=== PATIENT | male | born 1930 | race Caucasian/White ===

== ENCOUNTER 2021-12-31 08:38 | Inpatient (IN) ==
[2021-12-31] MEDS ORDERED: SODIUM CHLORIDE 1,000 ML IV STA (08:39)
--- NOTE | 2021-12-31 08:41 | ED.PDOC ---
General ED Provider: Dr. DIPESH ALONSO MD Chief Complaint: Weakness Stated Complaint: mild to mod general weakness today, no pain, no loc, no injury, no fever, no NV, +dry cough off and on, not on home oxygen, hx atrial fib and constipation, no dm Time Seen by Provider: 12/31/21 08:38 Nursing and Triage Documentation Reviewed and Agree: Yes Does patient meet sepsis criteria?: No System Inflammatory Response Syndrome: Not Applicable Sepsis Protocol: For patient's 13 years and over: Temp is 96.8 and below OR 101 and greater Pulse >90 BPM Resp >20/minute Acutely Altered Mental Status Are patient's symptoms suggestive of a new infection, such as: -Pneumonia -Skin, Soft Tissue -Endocarditis -UTI -Bone, Joint Infection -Implantable Device -Acute Abdominal Infection -Wound Infection -Meningitis -Blood Stream Catheter Infection -Unknown Review of Systems Review Of Systems Constitutional: Reports Weakness; Denies Fever Eyes: Denies Vision change Ears, Nose, Mouth, Throat: Denies Throat pain Respiratory: Reports Cough; Denies Short of air Cardiac: Denies Chest pain GI: Denies Abdominal pain or Vomiting : Denies Dysuria Musculoskeletal: Denies Back pain or Neck pain Skin: Denies Rash or Cyanosis Neurological: Denies Cognitive dysfunction All Other Systems: Other Physical Exam Physical Exam Appearance: Reports No pain distress Ill-appearing: None Pain Distress: None Eyes: Reports TREVA, EOMI and Conjunctiva clear ENT: Reports Oropharynx normal; Denies Rhinorrhea Neck: Supple Respiratory: Reports Airway patent, Breath sounds clear and Breath sounds equal Cardiovascular: Reports RRR GI/: Reports Soft and Nontender Musculoskeletal: Reports ROM intact Skin: Reports Warm and Dry Neurological: Reports Alert and Oriented Psychiatric: Reports Affect appropriate Interpretation Radiology Interpretation Radiology Interpretation By: Radiologist Xray Comments: right LL infil EKG Interpretation Time of EKG #1: 10:48 Rate: Normal Rhythm: Sinus Interpretation: first deg avb, no stemi Critical Care Note Critical Care Note Total Critical Care Time (mins): 30 Course Course Hematology/Chemistry: 12/31/21 09:00 12/31/21 09:00 Orders, Labs, Meds: Lab Review 12/31/21 12/31/21 12/31/21 08:50 09:00 09:00 WBC 3.77 L RBC 4.08 L Hgb 12.6 L Hct 36.1 L MCV 88.5 MCH 30.9 MCHC 34.9 RDW Coeff of Tamy 12.6 Plt Count 103 L Neutrophils % (Manual) 40.0 L Band Neutrophils % 1.0 Lymphocytes % (Manual) 31.0 Monocytes % (Manual) 22.0 H Metamyelocytes % 3.0 H Reactive Lymphocytes 3.0 Plt Morphology Comment Decreased Anisocytosis Not present RBC Morph Comment Normal PT INR Puncture Site Base Excess O2 Saturation ABG pH ABG pCO2 ABG pO2 ABG HCO3 ABG Total CO2 Cristian Test Hemoglobin Oxyhemoglobin Carboxyhemoglobin Total Hemoglobin FiO2 % Sodium 133.0 L Potassium 3.59 Chloride 97.8 L Carbon Dioxide 27.7 Anion Gap 11.09 BUN 26.3 H Creatinine 1.26 H Estimated GFR (MDRD) 54.00 BUN/Creatinine Ratio 20.87 Glucose 111.8 H Lactic Acid Calcium 8.03 L Total Bilirubin 1.06 AST 52.6 ALT 64.0 H Alkaline Phosphatase 53.1 L Troponin I 0.032 Total Protein 5.94 L Albumin 3.24 L Globulin 2.70 Albumin/Globulin Ratio 1.20 Urine Color Urine Clarity Urine pH Ur Specific [place] Urine Protein Urine Glucose (UA) Urine Ketones Urine Blood Urine Nitrite Urine Bilirubin Urine Urobilinogen Ur Leukocyte Esterase Urine Microscopic RBC Ur Squamous Epith Cells Digoxin SARS CoV-2 RNA Rapid MALATHI Positive H 12/31/21 12/31/21 12/31/21 09:00 09:00 09:00 WBC RBC Hgb Hct MCV MCH MCHC RDW Coeff of Tamy Plt Count Neutrophils % (Manual) Band Neutrophils % Lymphocytes % (Manual) Monocytes % (Manual) Metamyelocytes % Reactive Lymphocytes Plt Morphology Comment Anisocytosis RBC Morph Comment PT 9.8 INR 0.94 Puncture Site Base Excess O2 Saturation ABG pH ABG pCO2 ABG pO2 ABG HCO3 ABG Total CO2 Cristian Test Hemoglobin Oxyhemoglobin Carboxyhemoglobin Total Hemoglobin FiO2 % Sodium Potassium Chloride Carbon Dioxide Anion Gap BUN Creatinine Estimated GFR (MDRD) BUN/Creatinine Ratio Glucose Lactic Acid 0.99 Calcium Total Bilirubin AST ALT Alkaline Phosphatase Troponin I Total Protein Albumin Globulin Albumin/Globulin Ratio Urine Color Urine Clarity Urine pH Ur Specific [place] Urine Protein Urine Glucose (UA) Urine Ketones Urine Blood Urine Nitrite Urine Bilirubin Urine Urobilinogen Ur Leukocyte Esterase Urine Microscopic RBC Ur Squamous Epith Cells Digoxin < 0.40 L SARS CoV-2 RNA Rapid MALATHI 12/31/21 12/31/21 09:00 09:30 WBC RBC Hgb Hct MCV MCH MCHC RDW Coeff of Tamy Plt Count Neutrophils % (Manual) Band Neutrophils % Lymphocytes % (Manual) Monocytes % (Manual) Metamyelocytes % Reactive Lymphocytes Plt Morphology Comment Anisocytosis RBC Morph Comment PT INR Puncture Site Rb Base Excess 6.5 H O2 Saturation 99.6 H ABG pH 7.56 H* ABG pCO2 32.0 L ABG pO2 155.0 H ABG HCO3 28.7 H ABG Total CO2 29.7 H Cristian Test Pos Hemoglobin 2.0 H Oxyhemoglobin 94.4 L Carboxyhemoglobin 2.8 H Total Hemoglobin 13.2 FiO2 % 21.0 Sodium Potassium Chloride Carbon Dioxide Anion Gap BUN Creatinine Estimated GFR (MDRD) BUN/Creatinine Ratio Glucose Lactic Acid Calcium Total Bilirubin AST ALT Alkaline Phosphatase Troponin I Total Protein Albumin Globulin Albumin/Globulin Ratio Urine Color Yellow Urine Clarity Clear Urine pH 6.5 Ur Specific [place] 1.015 Urine Protein Negative Urine Glucose (UA) Negative Urine Ketones Negative Urine Blood Trace-intact H Urine Nitrite Negative Urine Bilirubin Negative Urine Urobilinogen 1.0 H Ur Leukocyte Esterase Negative Urine Microscopic RBC 0-2 Ur Squamous Epith Cells Not present Digoxin SARS CoV-2 RNA Rapid MALATHI Orders Category Date Time Status ABG DRAW REQUEST Stat CARDIO 12/31/21 08:48 Completed EKG-(ED ONLY) Stat CARDIO 12/31/21 08:39 Completed METERED DOSE INHALATION Routine CARDIO 12/31/21 09:36 Completed OXYGEN [ED APPLY O2] .ONCE EMERGENCY 12/31/21 09:37 Active ABG COOX Stat LAB 12/31/21 09:00 Completed CBC W/ AUTO DIFF Stat LAB 12/31/21 09:00 Completed CMP [COMPREHENSIVE METABOLIC PANEL] Stat LAB 12/31/21 09:00 Completed DIGOXIN Stat LAB 12/31/21 09:00 Completed LACTIC ACID Stat LAB 12/31/21 09:00 Completed MANUAL DIFFERENTIAL Stat LAB 12/31/21 09:00 Completed PT WITH INR Stat LAB 12/31/21 09:00 Completed SARS COV-2 RNA RAPID MALATHI Stat LAB 12/31/21 08:50 Completed TROPONIN I Stat LAB 12/31/21 09:00 Completed URINALYSIS C & S IF INDICATED Stat LAB 12/31/21 09:30 Completed Albuterol Inhaler(with Spacer) [Ventolin Hfa (Per Puff- MEDS 12/31/21 09:36 Discontinued with Spacer)] 2 puff IH ONCE ONE Methylprednisolone Sod Succ/Pf [Solu-Medrol 125 mg] MEDS 12/31/21 09:36 Discontinued 125 mg IM ONCE ONE Sodium Chloride 0.9% [Sodium Chloride] 1,000 ml MEDS 12/31/21 08:39 Discontinued IV BOLUS CHEST, 1V AP ONLY Stat RADS 12/31/21 08:39 Completed KUB Stat RADS 12/31/21 08:48 Completed Medications Discontinued Medications Generic Name Dose Route Start Last Admin Trade Name Freq PRN Reason Stop Dose Admin Albuterol Sulfate 2 puff 12/31/21 09:36 12/31/21 09:48 Albuterol Sulfate (Ventolin Hfa) 18 Gm 1 Puff With Spacer IH 12/31/21 09:37 2 puff ONCE ONE Administration Sodium Chloride 1,000 mls @ 1,000 mls/hr 12/31/21 08:39 Sodium Chloride IV 12/31/21 09:38 BOLUS STA Methylprednisolone Sodium Succinate 125 mg 12/31/21 09:36 12/31/21 10:01 Methylprednisolone Sod Succ/Pf 125 Mg/2 Ml Vial IM 12/31/21 09:37 125 mg ONCE ONE Administration Vital Signs: Temp Pulse Resp BP Pulse Ox 12/31/21 08:38 98.5 F 86 18 130/65 91 L Discharge Plan Discharge Patient Disposition: ADMITTED INPATIENT Discharge Problem: COVID-19, Pneumonia, Hypoxia Prescriptions: No Action latanoprost 0.005 % drops 1 drp BOTHEYES BEDTIME Label Comments: Instill 1 drop into both eyes every evening ofloxacin 0.3 % drops 1 drp RIGHTEYE TID Label Comments: Instill 1 drop into right eye three times a day for 5 days artificial tears solution Drops 2 drp OPHTHALMIC (EYE) PRN PRN (Reason: Dry Eyes) terazosin 2 mg capsule 2 mg PO BEDTIME Label Comments: TAKE ONE CAPSULE BY MOUTH AT BEDTIME losartan-hydrochlorothiazide 50-12.5 mg tablet 1 tab PO DAILY Label Comments: TAKE ONE TABLET BY MOUTH DAILY Did you review [place] RESEARCH TECHNOLOGIST?: Not Applicable ED Provider: DIPESH ALONSO Condition: Stable Physician Progress Note: []icu tele admit for covid hypoxia to hospitalist
[2021-12-31 09:07] LABS: ABG O2 HGB 94.4 % (95-100); BEecf 6.5 (-2.0-3.0); COHb 2.8 (0.5-1.5); HCO3 28.7 (21-28); TCO2 29.7 (19-24); sO2 99.6 % (94-98); tHb 13.2 g/dl (11.7-17.4)
[2021-12-31 09:09] LABS: ABG PH 7.56 (7.35-7.45)
[2021-12-31 09:22] LABS: HEMATOCRIT 36.1 % (42.0-52.0); HEMOGLOBIN 12.6 g/dl (14.0-18.0); MEAN CORPUSCULAR HEMOGLOBIN 30.9 pg (27.0-31.0); MEAN CORPUSCULAR HGB CONC 34.9 (31.8-35.4); MEAN CORPUSCULAR VOLUME 88.5 fl (80.0-94.0); PLATELET COUNT 103 10^3/uL (140-440); RDW COEFFICIENT OF VARIATION 12.6 % (11.6-14.8); RED BLOOD COUNT 4.08 10^6/ul (4.70-6.10); WHITE BLOOD COUNT 3.77 K/ul (4.2-10.2)
[2021-12-31 09:30] LABS: PROTHROMBIN TIME 9.8 SEC (9.3-11.0)
--- NOTE | 2021-12-31 09:33 | DI ---
EXAM: CHEST RADIOGRAPH (1 VIEW) TECHNIQUE: Frontal Chest Radiograph. HISTORY: Weakness COMPARISON: Chest radiograph 12/23/2021 FINDINGS: Lines, Tubes, Devices: None Lungs and Pleura: Small hazy opacity in the right lower lobe. No pleural effusion. No pneumothorax . Cardiomediastinum: Normal cardiomediastinal silhouette. No aortic calcifications. Bones/Soft Tissues: Degenerative changes of the spine. No soft tissue abnormality. Upper Abdomen: Within normal limits. IMPRESSION: Small hazy opacity in the right lower lobe which may represent summation shadow, however developing p neumonia is not excluded. Follow-up lateral chest radiograph could be performed for further evaluati on.
[2021-12-31 09:35] LABS: BILIRUBIN,URINE Negative (NEGATIVE); CLARITY,URINE Clear (CLEAR); COLOR,URINE Yellow (YELLOW); GLUCOSE, URINE (UA) Negative (NEGATIVE); KETONES,URINE Negative (NEGATIVE); LEUKOCYTE ESTERASE ,URINE Negative (NEGATIVE); NITRITE,URINE Negative (NEGATIVE); PH,URINE 6.5 (5-9); PROTEIN,URINE Negative (NEGATIVE); URINE, BLOOD Trace-intact (NEGATIVE)
[2021-12-31] MEDS ORDERED: VENTOLIN HFA (PER PUFF-WITH SPACER) IH ONE (09:36)
[2021-12-31] MEDS ORDERED: SOLU-MEDROL 125 MG IM ONE (09:36)
[2021-12-31 09:41] LABS: SQUAMOUS EPITHELIAL CELL,UR NOT PRESENT (0-5); URINE RBC, MICROSCOPIC 0-2 (0-2)
[2021-12-31 09:44] LABS: ANISOCYTOSIS NOT PRESENT (NOT PRESENT)
--- NOTE | 2021-12-31 10:00 | DI ---
EXAM: ABDOMINAL RADIOGRAPH (1 VIEW) HISTORY: Constipation. TECHNIQUE: AP radiograph of the abdomen. COMPARISON: None. FINDINGS: No dilated gas-filled loops of small bowel or colon. Normal colonic fecal burden. No pathologic calcifications. Degenerative changes of the lumbar spine with multilevel osteophytes. Lung bases are clear. IMPRESSION: No dilated bowel. Normal colonic fecal burden.
[2021-12-31 10:32] LABS: ALBUMIN 3.24 g/dL (3.5-5.0); ALKALINE PHOSPHATASE 53.1 U/L (56-119); ASPARTATE AMINO TRANSFERASE 52.6 U/L (17-59); BILIRUBIN,TOTAL 1.06 mg/dL (0.2-1.3); BLOOD UREA NITROGEN 26.3 mg/dL (9-20); CALCIUM 8.03 mg/dL (8.4-10.2); CARBON DIOXIDE 27.7 mmol/L (22-30.0); CHLORIDE 97.8 mmol/L (98-107); CREATININE 1.26 mg/dL (0.60-1.10); GLUCOSE 111.8 mg/dL (74-106); POTASSIUM 3.59 mmol/L (3.5-5.1); TOTAL PROTEIN 5.94 g/dL (6.3-8.2)
[2021-12-31 10:43] LABS: TROPONIN I 0.032 ng/ml (0.0000-0.120)
[2021-12-31] MEDS ORDERED: SOLU-MEDROL 40 MG IVP STA (10:51)
[2021-12-31] MEDS ORDERED: VENTOLIN HFA (PER PUFF-WITH SPACER) IH STA (10:51)
[2021-12-31] MEDS ORDERED: ARTIFICIAL TEARS DROPS EACHEYE PRN (11:16)
[2021-12-31] MEDS: LEVAQUIN 750 MG/150 ML D5W 750 MG/150 ML BAG IV SCH (11:25)
[2021-12-31] MEDS: SODIUM CHLORIDE 1,000 ML IV SCH (13:15)
[2021-12-31 13:41] VITALS: BMI 28.5
--- NOTE | 2021-12-31 14:44 | PCM.PROG ---
Date Seen by Provider: 12/31/21 Time Seen by Provider: 14:41 Subjective: pt improved breathing, admitted for relative hypoxia and covid and right LL infiltrate Objective: Vitals: T=97.4 F, P=81, R=14, LJ=274/90, SPO2=96 HEENT: []conjunctiva pain Neck: []supple Lungs: [] end expiratory wheeze right CVS: []RRR Abdomen: []soft and nontender Extremities: []warm and dry Neurological: []alert and oriented Skin: []pink Lab/Tests/Diagnostic Imaging: [] shear operator helper 1.2, wbc wnl Plan: iv levaquin, albuterol hfa, steroids care to Dr Gagnno at 19:00
[2021-12-31] MEDS: OCUFLOX 0.3% OPTH SOL RIGHTEYE SCH ×2 (15:43→21:28)
[2021-12-31] MEDS: VENTOLIN HFA (PER PUFF-WITH SPACER) IH SCH ×2 (17:55→22:05)
[2021-12-31] MEDS: XALATAN EACHEYE SCH (21:22)
[2021-12-31] MEDS: HYTRIN PO SCH (21:22)
[2022-01-01] MEDS: SODIUM CHLORIDE 1,000 ML IV SCH ×2 (00:48→19:40)
[2022-01-01] MEDS: VENTOLIN HFA (PER PUFF-WITH SPACER) IH SCH ×4 (05:15→23:21)
[2022-01-01 05:25] LABS: HEMATOCRIT 39.2 % (42.0-52.0); HEMOGLOBIN 12.5 g/dl (14.0-18.0); MEAN CORPUSCULAR HEMOGLOBIN 30.8 pg (27.0-31.0); MEAN CORPUSCULAR HGB CONC 31.9 (31.8-35.4); MEAN CORPUSCULAR VOLUME 96.6 fl (80.0-94.0); PLATELET COUNT 103 10^3/uL (140-440); RDW COEFFICIENT OF VARIATION 12.8 % (11.6-14.8); RED BLOOD COUNT 4.06 10^6/ul (4.70-6.10); WHITE BLOOD COUNT 3.35 K/ul (4.2-10.2)
[2022-01-01 05:30] LABS: ANISOCYTOSIS NOT PRESENT (NOT PRESENT)
[2022-01-01 05:44] LABS: ALANINE AMINOTRANSFERASE 54.8 U/L (0-50); ALBUMIN 3.18 g/dL (3.5-5.0); ALKALINE PHOSPHATASE 54.1 U/L (56-119); ASPARTATE AMINO TRANSFERASE 50.2 U/L (17-59); BILIRUBIN,TOTAL 0.97 mg/dL (0.2-1.3); BLOOD UREA NITROGEN 20.9 mg/dL (9-20); CALCIUM 8.01 mg/dL (8.4-10.2); CARBON DIOXIDE 24.5 mmol/L (22-30.0); CHLORIDE 103.9 mmol/L (98-107); CREATININE 1.13 mg/dL (0.60-1.10); GLUCOSE 126.5 mg/dL (74-106); POTASSIUM 3.88 mmol/L (3.5-5.1); SODIUM 135.8 mmol/L (134.5-145); TOTAL PROTEIN 5.86 g/dL (6.3-8.2)
[2022-01-01] MEDS ORDERED: VEKLURY 100 MG in SODIUM CHLORIDE 250 ML IV SCH (09:00)
--- NOTE | 2022-01-01 09:50 | PCM.PROG ---
Date Seen by Provider: 01/01/22 Time Seen by Provider: 09:49 Subjective: Patient feeling a bit stronger. Tolerating diet. Patient did have a bowel movement. Objective: Vitals: T=97.9 F, P=72, R=22, SE=037/82, SPO2=95 Alert and in NAD. HEENT: [] Neck: [] Lungs: [] Chest clear. BS decreased a bit at right base. CVS: []RRR. Abdomen: []Soft, nontender. Extremities: [] Neurological: [] Skin: [] Lab/Tests/Diagnostic Imaging: [] Plan: Increase activity. Supplemental potassium. Continue other present measures. Repeat CXR in AM.
[2022-01-01] MEDS ORDERED: K-DUR PO ONE (09:52)
[2022-01-01] MEDS: LEVAQUIN 750 MG/150 ML D5W 750 MG/150 ML BAG IV SCH (09:58)
[2022-01-01] MEDS: HYZAAR 50-12.5 MG TAB PO SCH ×3 (09:58→20:08)
[2022-01-01] MEDS: OCUFLOX 0.3% OPTH SOL RIGHTEYE SCH ×2 (09:59→16:17)
[2022-01-01] MEDS ORDERED: K-DUR ONE (14:02)
[2022-01-01] MEDS: HYTRIN PO SCH (20:08)
[2022-01-01] MEDS: XALATAN EACHEYE SCH (20:08)
[2022-01-01] MEDS: MUCINEX PO PRN (21:15)
[2022-01-01] MEDS ORDERED: OCEAN NASAL SPRAY NAS PRN (21:49)
[2022-01-02] MEDS: VENTOLIN HFA (PER PUFF-WITH SPACER) IH SCH ×4 (05:06→22:27)
[2022-01-02 07:28] LABS: BASOPHILS % (AUTO) 0.4 % (0.0-3.0); EOSINOPHILS % (AUTO) 0.2 % (0.0-7.0); HEMATOCRIT 39.7 % (42.0-52.0); HEMOGLOBIN 13.1 g/dl (14.0-18.0); IMMATURE GRANULOCYTE # (AUTO) 0.2 (0.0-1.0); LYMPHOCYTES # (AUTO) 1.2 K/uL (0.60-3.4); LYMPHOCYTES % (AUTO) 24.5 (10.0-50.0); MEAN CORPUSCULAR HEMOGLOBIN 30.7 pg (27.0-31.0); MONOCYTES # (AUTO) 0.8 K/uL (0.4-2.0); MONOCYTES % (AUTO) 16.5 (0-10); NEUTROPHILS # (AUTO) 2.6 K/ul (2.0-6.9); NEUTROPHILS % (AUTO) 54.4 % (42.2-75.2); PLATELET COUNT 121 10^3/uL (140-440); RED BLOOD COUNT 4.27 10^6/ul (4.70-6.10); WHITE BLOOD COUNT 4.73 K/ul (4.2-10.2)
[2022-01-02 07:42] LABS: ALANINE AMINOTRANSFERASE 63.3 U/L (0-50); ALBUMIN 3.38 g/dL (3.5-5.0); ALKALINE PHOSPHATASE 52.2 U/L (56-119); ASPARTATE AMINO TRANSFERASE 74.9 U/L (17-59); BILIRUBIN,TOTAL 1.19 mg/dL (0.2-1.3); BLOOD UREA NITROGEN 19.7 mg/dL (9-20); CALCIUM 8.03 mg/dL (8.4-10.2); CARBON DIOXIDE 26.1 mmol/L (22-30.0); CHLORIDE 106.5 mmol/L (98-107); CREATININE 1.12 mg/dL (0.60-1.10); GLUCOSE 93.7 mg/dL (74-106); POTASSIUM 4.18 mmol/L (3.5-5.1); SODIUM 137.6 mmol/L (134.5-145); TOTAL PROTEIN 6.29 g/dL (6.3-8.2)
--- NOTE | 2022-01-02 08:36 | DI ---
EXAM: Single, portable AP view(s) chest. HISTORY: Pneumonia COMPARISON: 12/31/2021. TECHNIQUE: Single, portable AP view(s) of the chest. FINDINGS: Lungs: The lung volumes are normal.. The lungs are clear There is no pneumothorax. Cardiac monitoring leads are present. Cardiovascular: The heart is normal. The pulmonary vasculature is within normal limits. The aorta is unremarkable. Eliane/Mediastinum: Normal. Osseous structures: Normal for age. IMPRESSION: There is no acute cardiopulmonary process.
[2022-01-02] MEDS: LEVAQUIN 750 MG/150 ML D5W 750 MG/150 ML BAG IV SCH (10:03)
[2022-01-02] MEDS: MUCINEX PO PRN (13:05)
--- NOTE | 2022-01-02 15:26 | PCM.PROG ---
Date Seen by Provider: 01/02/22 Time Seen by Provider: 15:24 Subjective: weak and short of breath improving, no fever Objective: Vitals: T=97.7 F, P=89, R=23, DG=562/98, SPO2=96 HEENT: []conjunctiva clear Neck: []supple Lungs: [] clear CVS: []RRR Abdomen: []nondistended Extremities: []warm and dry Neurological: []alert Skin: []pink Lab/Tests/Diagnostic Imaging: [] cxr per Rad nap, wbc 4.7 Plan: wean off oxygen, ot and pt evaluation, discharge home in morning care to Dr Gagnon at 19:00
[2022-01-02] MEDS: SODIUM CHLORIDE 1,000 ML IV SCH ×2 (17:31)
[2022-01-02] MEDS: HYTRIN PO SCH (21:44)
[2022-01-02] MEDS: HYZAAR 50-12.5 MG TAB PO SCH (21:44)
[2022-01-02] MEDS: XALATAN EACHEYE SCH (21:47)
[2022-01-03] MEDS: SODIUM CHLORIDE 1,000 ML IV SCH ×2 (00:31→09:59)
[2022-01-03] MEDS: VENTOLIN HFA (PER PUFF-WITH SPACER) IH SCH ×4 (05:02→22:32)
[2022-01-03] MEDS: LEVAQUIN 750 MG/150 ML D5W 750 MG/150 ML BAG IV SCH (08:08)
--- NOTE | 2022-01-03 08:42 | PCM.PROG ---
Date Seen by Provider: 01/03/22 Time Seen by Provider: 08:38 Subjective: Starting to regain some of his strength. Appetite improving. Has been weaned from supplemental oxygen. Objective: Vitals: T=97.6 F, P=89, R=20, FL=791/78, SPO2=94 Alert and in NAD. Appears to be weak. HEENT: [] Neck: [] Lungs: [] Clear BS equal. CVS: []RRR. No edema. Abdomen: []Soft, nontender and nondistended. Extremities: [] Neurological: [] Skin: [] Lab/Tests/Diagnostic Imaging: [] (1) COVID-19: Status: Acute Code(s): U07.1 - COVID-19 SNOMED Code(s): 920903075 (2) Pneumonia: Status: Acute Code(s): J18.9 - Pneumonia, unspecified organism SNOMED Code(s): 294035958 Plan: Patient making slow, steady progress. Hopefully, home tomorrow. Continue levaquin. PT to see for strengthening and conditioning.
[2022-01-03] MEDS: HYZAAR 50-12.5 MG TAB PO SCH (21:37)
[2022-01-03] MEDS: XALATAN EACHEYE SCH (21:37)
[2022-01-03] MEDS: HYTRIN PO SCH (21:38)
[2022-01-04] MEDS: VENTOLIN HFA (PER PUFF-WITH SPACER) IH SCH ×2 (05:27→11:12)
[2022-01-04 05:40] VITALS: BP 141/77; TEMP 97.8
[2022-01-04] MEDS ORDERED: LEVAQUIN PO SCH (09:00)
--- NOTE | 2022-01-05 02:44 | PCM.PROG ---
Date Seen by Provider: 01/04/22 Time Seen by Provider: 11:45 Objective: Vitals: T=97.8 F, P=90, R=23, ZV=234/77, SPO2=94 HEENT: []wnl Neck: []supple Lungs: [] chest was clear CVS: []rrr Abdomen: []benign Extremities: []no acute abnormality Neurological: []non-focal Skin: []wnl Lab/Tests/Diagnostic Imaging: [] (1) COVID-19: Status: Acute Code(s): U07.1 - COVID-19 SNOMED Code(s): 902898077 (2) Pneumonia: Status: Acute Code(s): J18.9 - Pneumonia, unspecified organism SNOMED Code(s): 667760158 Plan: Home today. Early PMD f/u. Rx Albuterol MDI.
--- NOTE | 2022-01-05 02:51 | PCM.DC ---
Final Diagnosis:COVID-19 2. Pneumonia Physical Exam Appearance: Well-appearing and No pain distress Pain Distress: None Eyes: TREVA and EOMI ENT: Ears normal, Nose normal and Oropharynx normal Neck: Supple Respiratory: Airway patent and Breath sounds clear Cardiovascular: RRR and Pulses normal GI/: Soft, Nontender, No masses and Bowel sounds normal Musculoskeletal: Normal strength, ROM intact, No edema and No calf tenderness Skin: Warm, Dry and Normal color Neurological: Sensation intact, Motor intact, Reflexes intact, Cranial nerves intact, Alert and Oriented Psychiatric: Affect appropriate (1) COVID-19: Status: Acute Code(s): U07.1 - COVID-19 SNOMED Code(s): 253299096 (2) Pneumonia: Status: Acute Code(s): J18.9 - Pneumonia, unspecified organism SNOMED Code(s): 953614981 Reason for Hospitalization: Pneumonia. Covid-19 Prognosis/Condition at Discharge: Uncertain/Stable. Medications at Discharge: Ambulatory Orders Medication Instructions Recorded artificial tears solution eye drops 2 drp ophthalmic (eye) PRN PRN Dry 12/23/21 Eyes latanoprost 0.005 % eye drops 1 drp BOTHEYES BEDTIME 12/23/21 losartan 50 mg-hydrochlorothiazide 1 tab PO DAILY 12/23/21 12.5 mg tablet ofloxacin 0.3 % eye drops 1 drp RIGHTEYE TID 12/23/21 terazosin 2 mg capsule 2 mg PO BEDTIME 12/23/21 albuterol sulfate 90 mcg/actuation 2 puff inhalation QID PRN 01/04/22 aerosol inhaler (Ventolin HFA) Bronchodilation #1 g Lab/Diagnostics: See the results. Education Provided to Patient and Family: Covid-19, Pneumonia. Follow-ups: PMD in 1-2 days. Discharge Disposition: Home Hospital Course: Pt gradually improved and wanted to go home on 01/04/2022. Plan: Home.
== END 2022-01-04 14:22 | disposition home or self-care (01) | DRG 177 ==
LOC: ED 08:38 → SCU 11:04
PROVIDERS: ADMIT Emergency Medicine Emergency Medical Services; ATTEND Emergency Medicine
DX: Z79.899 Other long term (current) drug therapy; U07.1 COVID-19; R09.02 Hypoxemia; Z51.81 Encounter for therapeutic drug level monitoring; J18.9 Pneumonia, unspecified organism; R06.02 Shortness of breath